=== PATIENT | female | born 1970 | race Two or more races ===

== ENCOUNTER 2023-11-13 08:40 | Outpatient (CLI) | payer OTHER, SELFPAY ==
--- OUTSIDE RECORDS SUMMARY | 2023-11-13 08:42 | XMS_ITS | Data Portability ---
Author Organization [facility] Address [address] [place] [address] [facility] [id number] Assessment No assessment recorded. Plan of Treatment Reminders Order Date Submit Date Provider Last Modified By Organization Details Last Modified Time Details Appointments Any 30 2023 09:00A Mayi Everett MD Not available Not available Not available Lab None recorded. Referral orthopedi c surgeon referral 2021 022 [email or web address] Not available 02/16/2022 18:42:26 Procedures None recorded. Surgeries None recorded. Imaging None recorded. Medication Orders None recorded. Patient TargetsNo targets recorded. Patient InstructionsNo instructions recorded. Reason for Referral Orthopedic Surgeon Referral for Trigger finger of right hand Patient complains of right middle trigger finger, with mild to moderate pain. Referring Physician: Rebecca Contreras, Family Medicine, Encounter Date: 02/14/2022 Medical Equipment None Reported. Vitals None Recorded Social History None recorded. Functional Status None recorded. Mental Status None recorded. Family History Nothing Reported. Medical History No medical history recorded. Gynecological HistoryNo gynecological history recorded. Obstetrics History GPAL:G 0 P 0 0 0 0 Past Encounters Encounter ID Performer Location Encounter Start Date Encounter Closed Date Diagnosis/Indication Diagnosis SNOMED-CT Code [id number] ELA CASTRO [place] [facility] [address] [facility] [address] [place] [id number] 02/14/2022 19:01:39 02/14/2022 19:53:29 Trigger finger of right hand [id number] 101 Health Concerns Section Related Observation LastModified by Organization Detai ls LastModified Time None Recorded Concern Status LastModified by Organization Details LastModified Time None Recorded Advance Directives Directive None Recorded Payers Encounter Date Sequence Insurance Name Policy Number Policy Huerta Covered Member ID Huerta Member ID Guarantor Name 02/14/2022 SLIDING FEE SCHEDULE - DISCOUNT Elda Guerra OBJorge Luis Episode No OBEpisode recorded.
--- OUTSIDE RECORDS SUMMARY | 2023-11-13 08:42 | XMS_ITS | Clinical Summary ---
Author Organization [facility] Address [place], [place] [address] Care Team Providers Care Extractor Operator Name Role Phone Unavailable Primary Care Provider Unavailabl e Allergies No known active allergies Medications No known medications Active Problems Problem Noted Date Diagnosed Date Type 2 diabetes mellitus wit hout complication, without long-term current use of insulin 08/01/2022 Overview: Diagnosed July 2022, Hemoglobin A1C 7.2. Hemorrhoids with prolapsed t issue that cannot be manually replaced 11/04/2015 Environmental allergies 11/18/2012 Vitamin D deficiency 10/06/2010 Lateral epicondylosis of left elbow 12/17/2009 Sacroiliitis, not elsewhere classified 8 Hypertriglyceridemia Pap smear for cervical cancer screening Overview: 06/2021 NIL/HPV negative. Plan: Pap/HPV due 06/2026 Resolved Problems Problem Noted Date Diagnosed Date Resolved Date Elbow pain 09/16/2009 10/04/2010 Impaired fasting glucose Immunizations Name Administration Dates Next Due AMB Influenza, IIV3 (Age >=3 years)(Flu Clinic [facility]) 04/23/2008 Td (Age >=7 Years) 08/08/2004 Tdap 12/12/2012 Family History Medical History Relation Name Comments Good Health Brother 1 Good Health Brother 2 Hyperlipidemia Father Hypertension Father Good Health Mother Cancer-breast Sister 1 lumpectomy and radiation Good Health Sister 2 Good Health Sister 3 Good Health Sister 4 Anesthesia Problem No Family History Blood Disease No Family History Cancer-colon No Family History Cancer-ovarian No Family History Diabetes No Family History Relation Name Status Comments Brother 1 Brother 2 Father Mother Sister 1 Sister 2 Sister 3 Sister 4 Social History Tobacco Use Types Packs/Day Years Used Date Smoking Tobacco: Never Smokeless Tobacco: Never Tobacco Cessation:Counseling Given: Yes Alcohol Use Standard Drinks/Week Comments No 0 (1 standard drink = 0.6 oz pur e alcohol) PHQ-2 Answer Date Recorded PHQ-2 TOTAL SCORE 0 07/19/2022 Social Connections Answer Date Recorded Frequency of Communication with Friends and Fami ly Not on file 05/21/2021 Financial Resource Strain Answer Date R ecorded Difficulty of Paying Living Expenses Not on file 05/21/2021 Difficulty of Paying Living Expenses Not on file 05/21/2021 Sex and Gender Information Value Date Recorded Sex Assigned at Not on file Gender Identity Not on file Sexual Orientation Not on file Obstetrics History Para Term AB IAB SAB Ectopic Multiple Livin g Live Births 3 Date Outcome GA Total Labor Labor/2nd/3rd Weight Sex Type Anes PTL Nidhi A1 A5 Name Clin Last Filed Vital Signs Vital Sign Reading Time Taken Comments Blood Pressure 119/79 08/01/2022 8:54 AM CDT Pulse 74 08/01/2022 8:54 AM CDT Temperature 37.1 ??C (98.7 ??F) 01/15/2020 10:14 AM C DT Respiratory Rate 16 11/05/2015 2:00 PM CDT Oxygen Saturation 97% 08/01/2022 8:54 AM CDT Inhaled Oxygen Concentration - - Weight 76.7 kg (169 lb) 08/01/2022 8:54 AM CDT Height 153 cm (5' 0.24) 07/19/2022 8:29 AM MANAGER SQL Body Mass Index 32.75 07/19/2022 8:29 AM MANAGER SQL Plan of Treatment Health Maintenance Due Date Last Done Comments Pneumococcal series for age 6-64 (1 of 2 - PCV) 11/08/1977 HIV for age 15-65 11/08/1986 Hepatitis C screening for ag e 18-79 11/08/1989 Colonoscopy through age 75 11/08/2016 Zoster (shingles) series for age 50+ (1 of 2) 11/08/2021 Tetanus booster 12/12/2022 12/12/2012, 08/08/2004 COVID-19 vaccine series (2022- season) 2023 BMI (ht and wt on same day) for age 18+ 07/20/2023 07/19/2022, 07/13/2021, 09/30/2020, Additional history exists Mammogram for age 45-75 07/20/2023 07/20/19, 07/13/2021, 06/09/2020, Additional history exists Depression screening for age 12+ 07/22/2023 07/21/2022, 07/19/2022, 07/19/2022, Additional history exists Influenza for age 50-64 01/20/2024 04/23/2008 Pap test for age 21-65 07/13/2026 , 07/13/2021, 07/26/2018, Additional history exists Lipids for age 45-75 07/20/2027 07/19/2022, 07/13/2021, 07/13/2021, Additional history exists Tdap Completed 12/12/2012 Procedures Procedure Name Priority Date/Time Associated Diagnosis Comments XR MAMMO SYLVAIN BILAT SCREEN Routine 07/19/2022 10:27 AM MANAGER SQL Other screening mammogram LC LIPID PANEL AND CHOL/HDL RATIO Routine 07/19/2022 9:20 AM MANAGER SQL Hypertriglyceridemi a SOLAR MANAGER THIN PREP PAP SCREEN IMAGED Routine 07/13/2021 9:47 AM MANAGER SQL Screening for malignant neoplasm of cervix from Last 3 Months or Most Recently Relevant to Health Maintenance Results * XR MAMMO SYLVAIN BILAT SCREEN (07/19/2022 10:27 AM MANAGER SQL) Anatomical Region Laterality Modality BREASTS, Breast Left, Breast Right Bilateral Mammography Impressions 07/19/2022 2:29 PM MANAGER SQL ??There is no radiographic evidence for malignancy. ??Recommend annual mammograms. MAMMOGRAM ASSESSMENT: ??ACR 1 Negative PATIENTS: You will also receive a letter with your examination results in an easy to read format. ??If you have questions about your results, please contact your referring provider. Narrative 07/19/2022 2:29 PM MANAGER SQL For Patients: As a result of the Century Cures Act, medical imaging exams and procedure reports are released immediately into your electronic medical record. You may view this report before your referring provider. If you have questions, please contact your health care provider. XR MAMMO SYLVAIN BILAT SCREEN [[id number]] CLINICAL HISTORY: ??This is an asymptomatic 51 y.o. patient. INDICATION FOR EXAM: Mammogram Screening. TECHNIQUE: CC & MLO views were obtained. ??This study was evaluated with the assistance of Computer-Aided Detection. Breast Tomosynthesis was used in interpretation. COMPARISON FILM: Yes 07/13/21 [employer] [facility] 06/09/20 [employer] FINDINGS: ??The breasts are heterogeneously dense, which may obscure small masses. There are no dominant masses, suspicious micro calcifications or areas of architectural distortion. Vicki MAHMOOD MAMMO * (ABNORMAL) LC LIPID PANEL AND CHOL/HDL RATIO (07/19/2022 9:20 AM [facility]) Cholesterol, Total 209(H) 100 - 199 mg/dL 07/21/2022 10:10 AM [facility] Triglycerides 537(H) 0 - 149 mg/dL 07/21/2022 10:10 AM [facility] HDL Cholesterol 32(L) >39 mg/dL 10:10 AM [facility] VLDL Cholesterol Keenan 88(H) 5 - 40 mg/dL 07/21/2022 10:10 AM [facility] LDL Chol Calc (NIH) 89 0 - 99 mg/dL 07/21/2022 10:10 AM [facility] T. Chol/HDL Ratio 6.5(H) 0.0 - 4.4 ratio 07/21/2022 10:10 AM [facility] Comment: ?T. Chol/HDL Ratio ?Men ??Women ?1/2 Avg.Risk ??3.4 ?3.3 ?Avg.Risk ??5.0 ?4.4 ? 2X Avg.Risk ??9.6 ?7.1 ? 3X Avg.Risk 23.4 ?? 11.0 Blood BLOOD SPECIMEN / Unknown Venipuncture / Unknown 07/19/2022 9:20 AM MANAGER SQL 07/19/2022 10:33 AM MANAGER SQL Narrative [facility] - 07/21/2022 10:10 AM MANAGER SQL Performed at: ??01 - [facility] [address] [place], [place] ??[id number] Playground Monitor: Jose Garcia MD, Phone: ??[phone] Vicki [facility]MOOD [facility] [address] [place] [address], * SOLAR MANAGER THIN PREP PAP SCREEN IMAGED (07/13/2021 9:47 AM MANAGER SQL) Case Report Gynecologic Cytology Report ? Case: [id number] ? Authorizing Provider: ??Vicki Cee PA ?Collected: ? 07/13/2021 0947 ? Ordering Location: ? [facility] ?? Received: ?07/13/2021 1017 ? Clinic ? First Screen: ?Theresa Waggoner ? Specimen: ?SOLAR MANAGER ThinPrep Vial Screening, Cervical ? 07/25/2021 2:31 [facility] INTERPRETATION /RESULT NEGATIVE FOR INTRAEPITHELIAL LESION OR MALIGNANCY (NIL) (none) 07/25/2021 2:31 PM [facility] IMEN ADEQUACY Satisfactory for evaluation Endocervical component present 07/25/2021 2:31 PM [facility] HPV REQUEST HPV and PAP 07/25/2021 2:[address] [facility] Date of LMP 07/05/21 07/25/2021 2:31 PM MANAGER SQL [facility] Last Pap Date 07/26/18 07/25/2021 2:31 PM MANAGER SQL [facility] Last Pap Result NIL 07/25/2021 2:31 PM MANAGER SQL [facility] Abnormal Pap or Bullard Bx in last 5 years No 07/25/2021 2:31 PM MANAGER SQL [facility] Menstrual Status Regular Periods 07/25/2021 2:31 PM MANAGER SQL [facility] Bullard Bx Done Today No 07/25/2021 2:31 PM MANAGER SQL [facility] Additional Information None given 07/25/2021 2:31 PM MANAGER SQL [facility] Comment: Cytology is screened at [facility] - [address], [place] [address] and [facility] - [address], [place] [address] and [facility] - [address] [place] [address] Interpreted at [facility] - [address], [place] [address] Automated Review Failed 07/25/2021 2:31 PM MANAGER SQL [facility] Comment:Processing failed, m anual screening required. ThinPrep Imaging System, [employer] ANCILLARY TESTING SOLAR MANAGER HPV Ordered, Please see separate report 07/25/2021 2:31 PM MANAGER SQL [facility] Note The pap test is a screening technique, not a diagnostic procedure. It is used primarily to screen for squamous cancers and precursor lesions. Published studies have shown that it is subject to both false negative and false positive results. The pap test should not be used as the sole means to diagnose or exclude pre-malignant and malignant lesions. 07/25/2021 2:31 PM MANAGER SQL [facility] Other (Cervical) Non-Blood / Unknown 07/13/2021 9:47 AM MANAGER SQL 07/13/2021 10:17 AM MANAGER SQL Vicki MAHMOOD PATHOLOGY/CYTOLOGY [facility] [address] [place] [address], [place] from Last 3 Months or Most Recently Relevant to Health Maintenance Advance Directives * Full Code (Latest Code Status on File) Date Activated Date Inactivated Comments 11/05/2015 11:20 AM 11/06/2015 2:27 AM * Full Code Date Activated Date Inactivated Comments 11/05/2015 8:26 AM 11/05/2015 11:20 AM
--- NOTE | 2023-11-13 08:45 | CRLHL7_ITS ---
For Patients: As a result of the Century Cures Act, medical imaging exams and procedure reports are released immediately into your electronic medical record. You may view this report before your referring provider. If you have questions, please contact your health care provider. BILATERAL SCREENING MAMMOGRAM WITH COMPUTER-AIDED DETECTION AND TOMOSYNTHESIS TECHNIQUE: CC and MLO views were obtained. These mammographic images have been obtained using full-field digital technique. These mammographic images were interpreted with the benefit of computer-aided detection. Breast Tomosynthesis was used in this interpretation. COMPARISON FILM: 07/19/22, 07/13/21, 06/09/20. FINDINGS: The breasts are heterogeneously dense, which may obscure small masses. IMPRESSION: There is no radiographic evidence for malignancy. ASSESSMENT: BI-RADS Category 2: Benign RECOMMENDATION: Routine screening mammogram in 1 year. A lay language report of this examination will be provided to the patient. Tony Rehman M.D. Diagnostic Radiologist [facility] [email or web address] SP/Dictated by: Tony Rehman MD @ 11/19/2023 3:09:00 PM (Electronically Signed)
== END 2023-11-13 08:41 | disposition home or self-care (01) ==
LOC: MAMMO 08:40
PROVIDERS: Visit Provider Physician Assistant
DX: Z12.31 Encounter for screening mammogram for malignant neoplasm of breast (principal); R92.2 Inconclusive mammogram
CPT/HCPCS: 77063; 77067

== ENCOUNTER 2024-12-03 17:12 | Outpatient (CLI) | payer MEDICAID, SELFPAY | END 2024-12-03 17:13 | disposition home or self-care (01) | LOC: NFLDUCREF 17:13 | DX: R10.9 Unspecified abdominal pain (principal); R50.9 Fever, unspecified | CPT/HCPCS: 87086 ==

== ENCOUNTER 2024-12-03 18:09 | Inpatient (IN) | payer MEDICAID, SELFPAY ==
[2024-12-03] VITALS (7 sets, daily range): BP systolic 123–138; BP diastolic 51–80; PULSE 76–110; RESP 16–18; TEMP 36.9–38.3; O2SAT 97–98; BMI 32.5
--- OUTSIDE RECORDS SUMMARY | 2024-12-03 18:11 | XMS_ITS | Data Portability ---
Author Organization [facility] Address [address] [place] [address] [facility] [id number] Assessment Encounter Date Assessment Date Assessment LastModified by Organization Details LastModified Time 11/14/2023 11/14/2023 - annual labs, UTD on pap and mammogram - if A1C higher than last year, consider addition of Metformin [email or web address] Not available 11/14/2023 12:43:34 04/07/2024 04/07/2024 Start naproxen 500 mg twice a day for headaches. Return if headaches start becoming more frequent for possible preventive medication [email or web address] Not available 04/07/2024 15:11:00 Plan of Treatment Reminders Order Date Submit Date Provider Last Modified By Organization Details Last Modified Time Details Appointments ESTABLISH ED PATIENT 30 2024 09:00A Mayi Everett MD Not available Not available Not available Lab HbA1c (hemoglob in A1c), blood 2024 025 [facility], [address] [place], [address], 06/30/2024 14:58:20 BMP, serum or plasma 2024 025 [facility], [address] [place], [address], 06/30/2024 14:58:21 CMP, serum or plasma 2023 024 [facility], [address] [place], [address], 12/20/2023 16:21:44 HbA1c (hemoglob in A1c), blood 2023 024 [facility], [address] [place], [address], 12/20/2023 16:22:48 lipid panel, serum 2023 024 [facility], [address] [place], [address], 12/20/2023 16:21:44 CBC w/ auto diff 2023 024 [facility], [address] [place], [address], 12/20/2023 16:22:18 TSH, serum or plasma 2023 024 [facility], [address] [place], [address], 12/20/2023 16:20:26 Referral orthopedi c surgeon referral 2021 022 [email or web address] Not available 02/16/2022 18:42:26 Procedures None recorded. Surgeries None recorded. Imaging None recorded. Medication Orders naproxen 500 mg tablet [address], [address], 06/27/2024 12:38:07 Patient TargetsNo targets recorded. Patient InstructionsNo instructions recorded. Reason for Referral Orthopedic Surgeon Referral for Trigger finger of right hand Patient complains of right middle trigger finger, with mild to moderate pain. Referring Physician: Rebecca Contreras, Family Medicine, Encounter Date: 02/14/2022 Results Created Date Observation Date Name Description Value Unit Range Abnormal Flag Note LastModifiedBy Organization Detail LastModifiedTime 06/30/1906/30/2024 BMP, serum or plasm a A1C 7.1 high Not Available [facility] [address] [place], [address], 06/30/2024 14:58:20 06/30/19 06/30/2024 BMP, serum or plasm a creatinine 0.5 Not Available [facility] [address] [place], [address], 06/30/2024 14:58:20 06/30/19 25 06/30/2024 HbA1c (hemo globi n A1c), blood A1C 7.1 high Not Available [facility] [address] [place], [address], 06/30/2024 14:03:26 06/30/19 25 06/30/2024 HbA1c (hemo globi n A1c), blood creatinine 0.5 Not Available [facility] [address] [place], [address], 06/30/2024 14:03:26 Result Notes None recorded. Problems Name Problem SNOMED Code Status Onset Date Resolution Date Notes Provider Name and Address Organization Details Recorded Time Type 2 diabetes mellitus 94093969 Active 2022 Echo Everett MD [address] [place], [address], [employer] 4 10:42:28 [facility] 71567348 Active 2023 Echo Everett MD [address] [place], [address], [employer] 4 12:37:20 Screening for malignant neoplasm of cervix Active 2023 Last pap at [facility] and normal with - HPV in 2021 per chart review, next pap 2026 Echo Everett MD [address] [place], [address], [employer] 4 12:38:00 Hyperlipid emia 24090839 Active 2024 Echo Everett MD [address] [facility] [place], [address], [employer] 5 12:50:45 Problem Notes None recorded. Medical Equipment None Reported. Medications Name Sig Start Date Stop Date Status Note LastModified by Organization Details LastModified Time naproxen 500 mg tablet TAKE 1 TABLET BY MOUTH TWICE A DAY NEEDED. 2024 completed Not Available Not Available Not Available Vitals Date Recorded Body height Body mass index (BMI) Body weight Heart rate Oxygen saturation Oxygen saturation in Arterial blood by Pulse oximetry Provider Name and Address Organization Details Last Updated DateTime 5 154.94 cm 32.2 kg/m2 13112.7 8 g 87 /min 98 % 98 % Echo Everett MD [address] [place], [address], [facility] [employer] [facility] 5 12:43:28 Date Recorded Body weight Heart rate Heart rate Oxygen saturation Oxygen saturation in Arterial blood by Pulse oximetry Systolic And Diastolic Provider Name and Address Organization Details Last Updated DateTime 4 06690.3 g 95 /min 95 /min 97 % 97 % 127/72 mm[Hg] Echo Everett MD [address] [place], [address] [employer] [facility] 4 12:38:16 Date Recorded Body height Body mass index (BMI) Body weight Respiratory rate Oxygen saturation Oxygen saturation in Arterial blood by Pulse oximetry Body temperature Heart rate Systolic And Diastolic Provider Name and Address Organization Details Last Updated DateTime 4 154.94 cm 32.4 kg/m2 90612.4 5 g 22 /min 99 % 99 % 96.7 [degF] 98 /min 139/81 mm[Hg] Venecia Larson [facility] [employer] [facility] 4 14:49:03 Social History None recorded. Functional Status None recorded. Mental Status None recorded. Family History Relationship Description Onset Age of this Age Resolved Age Notes LastModified by Organization Details LastModified Time Father Depressive disorder [email or web address] Not available 11/13 12:42:51 Medical History Condition Response Diabetes Y Gynecological HistoryNo gynecological history recorded. Obstetrics History GPAL:G 0 P 0 0 0 0 Past Encounters Encounter ID Performer Location Encounter Start Date Encounter Closed Date Diagnosis/Indication Diagnosis SNOMED-CT Code Diagnosis ICD10 Code Diagnosis Note [id number] ELA CASTRO Office [address] [facility] [address] [place] [id number] 02/14/2022 19:01:39 02/14/2022 19:53:29 Trigger finger of right hand [id number] 5339894 M65.30 Middle finger right hand, trigger finger [id number] MD [facility] [address] [place] [address] 11/14/2023 10:38:39 11/14/2023 11:21:55 Type 2 diabetes mellitus 63512378 E11.9 Adult [facility] th examination 569317801 Z00.00 [id number] RAMON CASTLE MD [facility] [address] [place] [address] 04/07/2024 14:41:22 04/07/2024 15:14:08 Migraine 78332190 G43.909 [id number] MD [facility] [address] [place] [address] 06/27/2024 12:17:29 06/27/2024 12:48:28 Type 2 diabetes mellitus 96508958 E11.9 - f/u A1C and BMP- discussed addition of meds if A1C were to be higher than 7-7.5- f/u summer 2024 Health Concerns Section Related Observation LastModified by Organization Detai ls LastModified Time None Recorded Concern Status LastModified by Organization Details LastModified Time None Recorded Advance Directives Directive None Recorded Payers Insurance Date Sequence Insurance Name Policy Number Policy Huerta Covered Member ID Huerta Member ID Guarantor Name 12/20/2023 SLIDING FEE SCHEDULE - DISCOUNT Elda Mendoza [place] Guerra Notes Date Note Type Note Provider Name and Address Organization Details Recorded Time 11/14/2023 text/html Elda is in for annual exam.She was previously seen by Vicki Cee at the [facility].History of diet-controlled DM2 (A1C last year 7.2, had been pre-diabetic for about 7 years prior). Not checking sugars at home.Had her Mammogram yesterday.Last JEMAL pap in 2021 (-HPV, due in 2026) Echo Everett MD [address] [place], [address], [facility] - [employer] [facility] 11/14/2023 12:43:51 06/27/2024 text/html Elda is in for f/u.No concerns today.Labs labs November: diagnosed with DM2 at that time (A1C 6.6), cholesterol mildly elevated as well.Deferred medication initiation, made some diet changes. Active, watches 2yo granddaughter. Echo Everett MD [address] [place], [address], [facility] 06/27/2024 12:51:38 OBGyn Episode No OBEpisode recorded.
--- OUTSIDE RECORDS SUMMARY | 2024-12-03 18:11 | XMS_ITS | Clinical Summary ---
Author Organization [facility] Address [address] [place] [address] Care Team Providers Care Surveillance Manager Name Role Phone Unavailable Primary Care Provider Unavailabl e Allergies No known active allergies Medications No known medications Active Problems Problem Noted Date Diagnosed Date Type 2 diabetes mellitus wit hout complication, without long-term current use of insulin 08/01/2022 Overview (08/01/2022): Diagnosed July 2022, Hemoglobin A1C 7.2. Hemorrhoids with prolapsed t issue that cannot be manually replaced 11/04/2015 Environmental allergies 11/18/2012 Vitamin D deficiency 10/06/2010 Lateral epicondylosis of left elbow 12/17/2009 Sacroiliitis, not elsewhere classified 8 Hypertriglyceridemia Pap smear for cervical cancer screening Overview (08/24/2021): 06/2021 NIL/HPV negative. 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 Gender Identity Not on file Sexual Orientation Not on file Occupation Industry Job Start Date Job End Date homemaker Not on file Not on file Not on file Obstetrics History Para Term AB IAB SAB Ectopic Multiple Livin g Live Births 3 Date Outcome GA Total Labor Labor/2nd/3rd Weight Sex Type Anes PTL Nidhi A1 A5 Name Clin Last Filed Vital Signs Vital Sign Reading Time Taken Comments Blood Pressure 119/79 08/01/2022 8:54 AM CDT Pulse 74 08/01/2022 8:54 AM CDT Temperature 37.1 C (98.7 F) 01/15/2020 10:14 AM CDT Respiratory Rate 16 11/05/2015 2:00 PM CDT Oxygen Saturation 97% 08/01/2022 8:54 AM CDT Inhaled Oxygen Concentration - - Weight 76.7 kg (169 lb) 08/01/2022 8:54 AM CDT Height 153 cm (5' 0.24) 07/19/2022 8:29 AM DROP MACHINE OPERATOR Body Mass Index 32.75 07/19/2022 8:29 AM DROP MACHINE OPERATOR Plan of Treatment Health Maintenance Due Date Last Done Comments HIV for age 15-65 11/08/1986 Hepatitis C screening for ag e 18-79 11/08/1989 Hepatitis B series for 19+ ( 1 of 3 - 19+ 3-dose series) 11/08/1990 Pneumococcal series for age 50+ (1 of 2 - PCV) 11/08/1990 Colonoscopy through age 75 11/08/2016 Zoster (shingles) series for age 50+ (1 of 2) 11/08/2021 Tetanus booster 12/12/2022 12/12/2012, 08/08/2004 BMI (ht and wt on same day) for age 18+ 07/20/2023 07/19/2022, 07/13/2021, 09/30/2020, Additional history exists Mammogram for age 45-75 07/20/2023 07/20/19, 07/13/2021, 06/09/2020, Additional history exists Depression screening for age 12+ 07/22/2023 07/21/2022, 07/19/2022, 07/19/2022, Additional history exists COVID-19 vaccine series (2023- season) 2024 Influenza Vaccine (#1) 2025 04/23/2008 Pap test for age 21-65 07/13/2026 , 07/13/2021, 07/26/2018, Additional history exists Lipids for age 45-75 07/20/2027 07/19/2022, 07/13/2021, 07/13/2021, Additional history exists Procedures Procedure Name Priority Date/Time Associated Diagnosis Comments XR MAMMO SYLVAIN BILAT SCREEN Routine 07/19/2022 10:27 AM DROP MACHINE OPERATOR Other screening mammogram LC LIPID PANEL AND CHOL/HDL RATIO Routine 07/19/2022 9:20 AM DROP MACHINE OPERATOR Hypertriglyceridemi a HEAD CORRECTION OFFICER THIN PREP PAP SCREEN IMAGED Routine 07/13/2021 9:47 AM DROP MACHINE OPERATOR Screening for malignant neoplasm of cervix from Last 3 Months or Most Recently Relevant to Health Maintenance Results * XR MAMMO SYLVAIN BILAT SCREEN (07/19/2022 10:27 AM DROP MACHINE OPERATOR) Anatomical Region Laterality Modality BREASTS, Breast Left, Breast Right Bilateral Mammography Impressions 07/19/2022 2:29 PM DROP MACHINE OPERATOR There is no radiographic evidence for malignancy. Recommend annual mammograms. MAMMOGRAM ASSESSMENT: ACR 1 Negative PATIENTS: You will also receive a letter with your examination results in an easy to read format. If you have questions about your results, please contact your referring provider. Narrative 07/19/2022 2:29 PM DROP MACHINE OPERATOR For Patients: As a result of the 21st Century Cures Act, medical imaging exams and procedure reports are released immediately into your electronic medical record. You may view this report before your referring provider. If you have questions, please contact your health care provider. XR MAMMO SYLVAIN BILAT SCREEN [[id number]] CLINICAL HISTORY: This is an asymptomatic 51 y.o. patient. INDICATION FOR EXAM: Mammogram Screening. TECHNIQUE: CC & MLO views were obtained. This study was evaluated with the assistance of Computer-Aided Detection. Breast Tomosynthesis was used in interpretation. COMPARISON FILM: Yes 07/13/21 [facility] 06/09/20 [facility] FINDINGS: The breasts are heterogeneously dense, which may obscure small masses. There are no dominant masses, suspicious micro calcifications or areas of architectural distortion. us Vicki MAHMOOD MAMMO Final Resu lt * (ABNORMAL) LC LIPID PANEL AND CHOL/HDL RATIO (07/19/2022 9:20 AM DROP MACHINE OPERATOR) Cholesterol, Total 209(H) 100 - 199 mg/dL 07/21/2022 10:10 AM [facility] Triglycerides 537(H) 0 - 149 mg/dL 07/21/2022 10:10 AM [facility] HDL Cholesterol 32(L) >39 mg/dL 3 10:10 AM [facility] VLDL Cholesterol Keenan 88(H) 5 - 40 mg/dL 07/21/2022 10:10 AM [facility] LDL Chol Calc (NIH) 89 0 - 99 mg/dL 07/21/2022 10:10 AM [facility] T. Chol/HDL Ratio 6.5(H) 0.0 - 4.4 ratio 07/21/2022 10:10 AM [facility] Comment: T. Chol/HDL Ratio Men Women 1/2 Avg.Risk 3.4 3.3 Avg.Risk 5.0 4.4 2X Avg.Risk 9.6 7.1 3X Avg.Risk 23.4 11.0 Blood BLOOD SPECIMEN / Unknown Venipuncture / Unknown 07/19/2022 9:20 AM DROP MACHINE OPERATOR 07/19/2022 10:33 AM DROP MACHINE OPERATOR Narrative [facility] - 07/21/2022 10:10 AM DROP MACHINE OPERATOR Performed at: 01 - [facility] [place], [place] [id number] Child Care Supervisor: Jose Garcia MD, Phone: [phone] Vicki MAHMOOD SEND OUTS Final Resu lt [facility] [address] [place] [address], * HEAD CORRECTION OFFICER THIN PREP PAP SCREEN IMAGED (07/13/2021 9:47 AM DROP MACHINE OPERATOR) Case Report Gynecologic Cytology Report Case: [id number] Authorizing Provider: Vicki Cee PA Collected: 07/13/2021 0947 Ordering Location: [facility] Received: 07/13/2021 1017 Clinic First Screen: Theresa Waggoner Specimen: HEAD CORRECTION OFFICER ThinPrep Vial Screening, Cervical 07/25/2021 2:31 PM DROP MACHINE OPERATOR [facility] INTERPRETATION /RESULT NEGATIVE FOR INTRAEPITHELIAL LESION OR MALIGNANCY (NIL) (none) 07/25/2021 2:31 PM DROP MACHINE OPERATOR [facility] at 1431 DROP MACHINE OPERATOR SPECIMEN ADEQUACY Satisfactory for evaluation Endocervical component present 07/25/2021 2:31 PM DROP MACHINE OPERATOR [facility] HPV REQUEST HPV and PAP 07/25/2021 2:31 PM DROP MACHINE OPERATOR [facility] Date of LMP 07/05/21 07/25/2021 2:31 PM DROP MACHINE OPERATOR [facility] Last Pap Date 07/26/18 07/25/2021 2:31 PM DROP MACHINE OPERATOR [facility] Last Pap Result NIL 07/25/2021 2:31 PM DROP MACHINE OPERATOR [facility] Abnormal Pap or Wittmann Bx in last 5 years No 07/25/2021 2:31 PM DROP MACHINE OPERATOR [facility] Menstrual Status Regular Periods 07/25/2021 2:31 PM DROP MACHINE OPERATOR [facility] Wittmann Bx Done Today No 07/25/2021 2:31 PM DROP MACHINE OPERATOR [facility] Additional Information None given 07/25/2021 2:31 PM DROP MACHINE OPERATOR [facility] Comment: Cytology is screened at [facility] - [address], [place] [address] and [facility] - [address], [place] [address] and [facility] - [address] [place] [address] Interpreted at [facility] - [address], [place] [address] Automated Review Failed 07/25/2021 2:31 PM DROP MACHINE OPERATOR [facility] Comment:Processing failed, m anual screening required. ThinPrep Imaging System, [employer] ANCILLARY TESTING HEAD CORRECTION OFFICER HPV Ordered, Please see separate report 07/25/2021 2:31 PM DROP MACHINE OPERATOR [facility] Note The pap test is a screening technique, not a diagnostic procedure. It is used primarily to screen for squamous cancers and precursor lesions. Published studies have shown that it is subject to both false negative and false positive results. The pap test should not be used as the sole means to diagnose or exclude pre-malignant and malignant lesions. 07/25/2021 2:31 PM DROP MACHINE OPERATOR [facility] Other (Cervical) Non-Blood / Unknown 07/13/2021 9:47 AM DROP MACHINE OPERATOR 07/13/2021 10:17 AM DROP MACHINE OPERATOR us Vicki MAHMOOD PATHOLOGY/CYTOLOGY Final R esult [employer] [address] [place] [address], from Last 3 Months or Most Recently Relevant to Health Maintenance Advance Directives * Full Code (Latest Code Status on File) Date Activated Date Inactivated Comments 11/05/2015 11:20 AM 11/06/2015 2:27 AM * Full Code Date Activated Date Inactivated Comments 11/05/2015 8:26 AM 11/05/2015 11:20 AM
--- NOTE | 2024-12-03 18:39 | ED.ABDPAIN ---
HPI - Abdominal Pain General Time Seen by Provider: 18:39 Date Seen: 12/03/24 Chief Complaint: Abdominal Pain Stated Complaint: pain in lower back/stomach Time Seen by Provider: 12/03/24 18:31 Source: patient, RN notes reviewed, senior linux unix engineer and other (Reviewed with provider from urgent care, did discuss that I believed patient need imaging.) Mode of arrival: ambulatory Limitations: no limitations History of Present Illness HPI narrative: This 54-year-old female is accompanied by her daughter and referred from urgent care with abdominal pain. She notes that she had abdominal pain starting this morning, felt fevers. When she presented to urgent care was low abdominal pain that was sharp, she stated it felt similar to period cramps but she is perimenopausal, last LMP was in September. Periods have been irregular an inconsistent. She has had a tubal ligation and cholecystectomy. She states she had normal bowel movement today. She has had a bit of a headache. She noted some central chest pain in Urgent Care without any shortness of breath. She had normal EKG in Urgent Care. She denied any nausea or vomiting, no urinary symptoms, no vaginal symptoms. Her appetite was diminished for food but was still drinking. She did not try any [id number] medicines. She has not had symptoms like this before. Her labs in clinic showed a hemoglobin of 13.2[place] [address]. Her platelet count was 850211. Urinalysis had 2+ protein, negative ketones, 0-2 red cells, 5-10 white blood cells, few squamous epithelial cells, few bacteria but negative nitrites and negative leukocyte esterase. Her glucose was 160, sodium 137, potassium 4, creatinine 0.6. Last hemoglobin A1c was 7.1% on June 30 2024. Provider in Urgent Care felt she had significant epigastric tenderness but patient also complained of some suprapubic pelvic pain. She did call the ER and I did agree that this patient should have imaging and she was subsequently sent here. She has not taken anything for pain today, feels that she is managing. MD elicited complaint: abdominal pain Related Data Home Medications ?Medication ?Instructions ?Recorded ?Confirmed No Known Home Medications 10/18/23 12/03/24 Allergies Allergy/AdvReac Type Severity Reaction Status Date / Time No Known Drug Allergies Allergy Verified 12/03/24 19:05 Review of Systems Status of ROS Reports: 6 or more systems reviewed and unremarkable except as noted in History and below [facility] Medical History Vitamin D deficiency (10/06/10) ?E55.9 - Vitamin D deficiency, unspecified (ICD-10) Type 2 diabetes mellitus (07/19/22) ?E11.9 - Type 2 diabetes mellitus without complications (ICD-10) Sacroiliitis, not elsewhere classified (11/18/07) ?M46.1 - Sacroiliitis, not elsewhere classified (ICD-10) Postmenopausal state (11/14/23) ?Z78.0 - Asymptomatic menopausal state (ICD-10) Hypertriglyceridemia ?E78.1 - Pure hyperglyceridemia (ICD-10) Hyperlipidemia (06/27/24) ?E78.5 - Hyperlipidemia, unspecified (ICD-10) Hemorrhoids with prolapsed tissue that cannot be manually replaced (11/04/15) ?K64.3 - Fourth degree hemorrhoids (ICD-10) Environmental allergies (11/18/12) ?Z91.09 - Other allergy status, other than to drugs and biological substances (ICD-10) Obstructive sleep apnea ?G47.33 - Obstructive sleep apnea (adult) (pediatric) (ICD-10) Surgical History History of tubal ligation ?Z98.51 - Tubal ligation status (ICD-10) History of laparoscopic cholecystectomy ?Z90.49 - Acquired absence of other specified parts of digestive tract (ICD-10) Family History Sister Breast cancer, Onset Age: 44 Father High cholesterol Social History Narrative: Homemaker. . Nonsmoker. No alcohol use. Smoking Status: Never smoker Do you use any of these nicotine containing products: None How often do you have a drink containing alcohol: monthly or less How many standard drinks containing alcohol do you have on a typical day: 1 or 2 How often do you have six or more drinks on one occasion: Never AUDIT-C Alcohol total score: 1 Non-prescribed substance use: denies use Exam Const: Vital Signs, click to edit/add: Vital Signs - 24 hr 12/03/24 18:14 12/03/24 19:24 12/03/24 19:27 Temperature 100.1 F H 101 F H Pulse Rate [Pulse Oximeter] 110 H 98 Respiratory Rate 18 17 Blood Pressure [Ri ght Forearm] 130/80 138/74 Pulse Oximetry 97 98 97 Oxygen Delivery Me thod Room Air Room Air This 54-year-old female is alert, interactive, no apparent distress, seen exam room 3. Sclera clear, conjugate gaze, symmetrical facial function with flushed cheeks but no rash. Speech is normal. Lungs are clear, good air entry, no wheezing or crackles, no tachypnea, no rash seen on her back. CV slightly fast but regular, no significant murmur, normal S1-S2. Abdomen with epigastric tenderness, right lower quadrant and suprapubic tenderness. She states the epigastric tenderness is the worst. I do not feel any organomegaly, no true rebound or guarding, no masses. Bowel sounds were not present when I listened. Documenting provider has reviewed patient's vital signs: yes Course Course ED Course: Patient did have urinalysis, basic metabolic panel and CBC in clinic. Will add on other labs including liver panel, lactate, lipase. Will also look at a troponin just to ensure no changes there, update an EKG. She declines anything for pain management at this time, have discussed NPO status until we know that this is not a surgical situation. We are ordering CT imaging of her abdomen pelvis to further identify intra-abdominal pathology. Unclear what this is at this time but CT imaging and further lab should help identify source. Again, will also look at a troponin and EKG as she is diabetic just to ensure no complicating ischemic disease. Will initiate a L of IV fluids, she is aware to let us know if she changes her mind on pain management. Reevaluation(s) Time of Reevaluation #1: 20:05 Reevaluation #1: Did review with patient and her family the findings on the CT, concern for possible early colitis. She has not had any diarrhea however. Her temperature has risen, up to 101? F. did ask her again if she wanted something for pain, she states that she would take some Tylenol. I do think this is a good idea and it will help with her fever as well. We will order 1000 mg Tylenol. She does agree with hospitalization, Dr. Patricio will be seeing her. Consultations Consultation #1: Have reviewed case with the hospitalist Dr. Patricio. He agrees with observation. Patient's temperature is worsening. Will review with her and family that we are recommending hospitalization. He will decide if he wants to do antibiotics are not, have discussed with him that we have called lab to get a 2nd blood culture. Time: 20:04 Vital Signs Vital signs: Initial Vital Signs Temperature 100.1 F H 12/03/24 18:14 Temperature Source Temporal Artery Scan 12/03/24 18:14 Pulse Rate 110 H 12/03/24 18:14 Respiratory Rate 18 12/03/24 18:14 Blood Pressure 130/80 12/03/24 18:14 Blood Pressure Mean 96 12/03/24 18:14 Blood Pressure Position Sitting 12/03/24 18:14 Pulse Oximetry 97 12/03/24 18:14 Oxygen Delivery Method Room Air 12/03/24 18:14 Vital Signs Temperature 100.1 F H 12/03/24 18:14 Pulse Rate 110 H 12/03/24 18:14 Respiratory Rate 18 12/03/24 18:14 Blood Pressure 130/80 12/03/24 18:14 Pulse Oximetry 97 12/03/24 18:14 Oxygen Delivery Method Room Air 12/03/24 18:14 Temperature 101 F H 12/03/24 19:27 Pulse Rate 98 12/03/24 19:27 Respiratory Rate 17 12/03/24 19:27 Blood Pressure 138/74 12/03/24 19:27 Pulse Oximetry 97 12/03/24 19:27 Oxygen Delivery Method Room Air 12/03/24 19:27 Medications Administered Medications: Generic Name Dose Route Start Last Admin Trade Name Freq PRN Reason Stop Dose Admin Acetaminophen 1,000 mg 12/03/24 20:09 12/03/24 20:14 Acetaminophen 500 Mg Tablet PO 12/03/24 20:10 1,000 mg ONCE ONE Administration Sodium Chloride 1,000 mls @ 500 mls/hr 12/03/24 19:25 12/03/24 19:42 0.9 % Sodium Chloride 1000 Ml IV 12/03/24 21:24 500 mls/hr .Q2H ELFEGO Administration MDM - Abdominal Pain Lab Data Attestation: I reviewed the patient's lab results. Labs: Lab Results 12/03/24 12/03/24 12/03/24 Range/Units 18:50 18:52 20:06 Lactate 1.2 (0.5-1.9) mmol/L Total Bilirubin 0.9 (0.1-1.5) mg/dL Direct Bilirubin 0.0 (0.0-0.5) mg/dL AST 40 H (12-35) U/L ALT 38 H (4-35) U/L Alkaline Phosphatase 121 (40-150) U/L Troponin I < 0.01 (0.01-0.04) ng/mL C-Reactive Protein 1.8 H (0.5-1.0) mg/dL Total Protein 8.8 H (6.0-8.3) g/dL Albumin 4.3 (3.3-5.0) g/dL Lipase 84 (23-300) U/L Lab Acknowledgement Test Added Test Added Imaging Data CT scan - abdomen: Attestation: I have reviewed the pertinent imaging results. Radiologist's impression: Patient: OLIVIA GILMAN Facility:?[facility] Patient ID:?[id number] Site Patient ID:?[id number]. Site :?1970 Study:?CT-Abdomen/Pelvis 84cc ISOVUE 370-12/03/2024 7:12:05 PM Ordering Physician:?Maximino Segal Final Report: INDICATION: Abdominal pain, fever, leukocytosis. TECHNIQUE: CT abdomen and pelvis acquired with 84 cc Isovue 370 IV contrast. COMPARISON: None. FINDINGS: Lower chest: Unremarkable. Liver: Hepatic steatosis. No suspicious masses. Gallbladder and bile ducts: Prior cholecystectomy. Pancreas: Unremarkable. No mass or inflammation. Spleen: Unremarkable. Normal in size. No masses. Adrenal glands: Unremarkable. No nodules. Kidneys: Unremarkable. No suspicious masses, stones, or hydronephrosis. GI tract: Mild proximal colonic wall thickening accentuated by nondistention.. Normal in caliber. No sign of mass or inflammation. Normal appendix. Vasculature: Abdominal aorta is normal in caliber. Mesenteric arteries are patent. Lymph nodes: No lymphadenopathy. Peritoneum/Abdominal Wall: Unremarkable. No sign of mass or infiltration. No free air or significant free fluid. Pelvis: Mildly distended bladder with circumferential wall thickening. Bones: Unremarkable for age. IMPRESSION: Mild proximal colonic wall thickening accentuated by nondistention. Low-grade colitis not excluded. Mildly distended bladder with circumferential wall thickening. Recommend correlation with urinalysis if UTI suspected. Otherwise, no acute intra-abdominal/pelvic abnormality. Hepatic steatosis. Additional chronic findings as above. Please note that all CT scans at this facility use dose modulation, iterative reconstruction, and/or weight-based dosing when appropriate to reduce radiation dose to as low as reasonably achievable. Dictated by Joseph Sage MD @ 12/03/2024 7:20:12 PM (Electronic Signature) Chest x-ray: Attestation: I have reviewed the pertinent imaging results. Radiologist's impression: Patient: OLIVIA GILMAN Facility:?[facility] Patient ID:?[id number] Site Patient ID:?[id number]. Site :?1970 Study:?XRay-Chest 1V-12/03/2024 7:12:32 PM Ordering Physician:?Maximino Segal Final Report: INDICATION: Chest pain. TECHNIQUE: Chest 1 views. COMPARISON: None. FINDINGS: Cardiovascular and mediastinum: Heart size and vasculature are normal in caliber and appearance. Lungs and pleural spaces: Lungs are clear. No sign of infiltrate or mass. No sign of pleural effusion. No pneumothorax. Bones and soft tissues: No significant findings. IMPRESSION: No acute or significant findings. Dictated by Joseph Sage MD @ 12/03/2024 7:16:19 PM (Electronic Signature) ECG Data Attestation: I personally reviewed and interpreted this ECG as follows: (Sinus tachycardia, 101 beats per minute. Poor R-wave progression anterior precordial leads without any active ST segment or T-wave changes. No active ischemia noted.) ECG interpretation date: 12/03/24 ECG interpretation time: 19:23 Prior ECG tracings: available for review Discharge Plan Discharge Clinical Impression: Abdominal pain Qualifiers: Abdominal location: epigastric Qualified Code(s): R10.13 - Epigastric pain Fever Qualifiers: Fever type: unspecified Qualified Code(s): R50.9 - Fever, unspecified Patient Disposition: Admitted As Observation
--- NOTE | 2024-12-03 18:43 | CRLHL7_ITS ---
For Patients: As a result of the Century Cures Act, medical imaging exams and procedure reports are released immediately into your electronic medical record. You may view this report before your referring provider. If you have questions, please contact your health care provider. INDICATION: Abdominal pain, fever, leukocytosis. TECHNIQUE: CT abdomen and pelvis acquired with 84 cc Isovue 370 IV contrast. COMPARISON: None. FINDINGS: Lower chest: Unremarkable. Liver: Hepatic steatosis. No suspicious masses. Gallbladder and bile ducts: Prior cholecystectomy. Pancreas: Unremarkable. No mass or inflammation. Spleen: Unremarkable. Normal in size. No masses. Adrenal glands: Unremarkable. No nodules. Kidneys: Unremarkable. No suspicious masses, stones, or hydronephrosis. GI tract: Mild proximal colonic wall thickening accentuated by nondistention.. Normal in caliber. No sign of mass or inflammation. Normal appendix. Vasculature: Abdominal aorta is normal in caliber. Mesenteric arteries are patent. Lymph nodes: No lymphadenopathy. Peritoneum/Abdominal Wall: Unremarkable. No sign of mass or infiltration. No free air or significant free fluid. Pelvis: Mildly distended bladder with circumferential wall thickening. Bones: Unremarkable for age. IMPRESSION: Mild proximal colonic wall thickening accentuated by nondistention. Low-grade colitis not excluded. Mildly distended bladder with circumferential wall thickening. Recommend correlation with urinalysis if UTI suspected. Otherwise, no acute intra-abdominal/pelvic abnormality. Hepatic steatosis. Additional chronic findings as above. Please note that all CT scans at this facility use dose modulation, iterative reconstruction, and/or weight-based dosing when appropriate to reduce radiation dose to as low as reasonably achievable. Dictated by Joseph Sage MD @ 12/03/2024 7:20:12 PM (Electronically Signed)
--- NOTE | 2024-12-03 18:52 | CRLHL7_ITS ---
For Patients: As a result of the Century Cures Act, medical imaging exams and procedure reports are released immediately into your electronic medical record. You may view this report before your referring provider. If you have questions, please contact your health care provider. INDICATION: Chest pain. TECHNIQUE: Chest 1 views. COMPARISON: None. FINDINGS: Cardiovascular and mediastinum: Heart size and vasculature are normal in caliber and appearance. Lungs and pleural spaces: Lungs are clear. No sign of infiltrate or mass. No sign of pleural effusion. No pneumothorax. Bones and soft tissues: No significant findings. IMPRESSION: No acute or significant findings. Dictated by Joseph Sage MD @ 12/03/2024 7:16:19 PM (Electronically Signed)
[2024-12-03 18:58] LABS: Lactate* 1.2 mmol/L (0.5-1.9)
[2024-12-03 19:15] LABS: Albumin* 4.3 g/dL (3.3-5.0)
[2024-12-03 19:19] LABS: Alanine Aminotransferase* 38 U/L (4-35); Alkaline Phosphatase* 121 U/L (40-150); Aspartate Amino Transferase* 40 U/L (12-35); Bilirubin Direct* 0.0 mg/dL (0.0-0.5); Bilirubin Total* 0.9 mg/dL (0.1-1.5); Total Protein* 8.8 g/dL (6.0-8.3)
[2024-12-03] MEDS: ACETAMINOPHEN 500 MG TABLET 1000 MG PO (20:14)
--- NOTE | 2024-12-03 20:49 | PM.IMHP1 ---
Assessment and Plan Assessment and plan (1) Abdominal pain: Problem comment: CT suggestive of colitis. Patient is not having diarrhea at this point. Will do stool studies if diarrhea develops. She is moderately ill and with diffuse tenderness I am going to initiate antibiotics pending clinical course. Status: Acute (2) Fever: Problem comment: Likely due to intra-abdominal infection Status: Acute (3) Obstructive sleep apnea: Problem comment: Clinically suspected based on her small airway, history of snoring, history of daytime sleepiness and non restorative sleep. Status: Suspected (4) Type 2 diabetes mellitus: Problem comment: Patient reports diagnosis of prediabetes though hemoglobin A1c was 7.1 in June and is 8.1 today on 12/03/2024. Consider starting oral hypoglycemics when she is clinically better and eating. Status: Acute Plan 54-year-old female admitted to the hospital with generalized abdominal pain and fever. Cause for her symptoms is not clear at this time though I favor and intra-abdominal infection. CT suggestive of colitis but so far no diarrhea. Initiate antibiotics due to her being moderately ill pending her clinical course and more certain diagnosis Total Time Spent Total Time Spent: Total time spent today is 65 minutes in coordination of care, review of records and discussing with patient and family ongoing evaluation management of abdominal pain and fever Hospitalist- H&P: HPI History of Present Illness Date Seen: 12/03/24 Chief complaint: pain in lower back/stomach Narrative: Elda Guerra is a 54 year old female with pre diabetes and obesity presents with onset this morning of generalized crampy abdominal pain as well as low back pain. She reports she was feeling well until this morning. She had some T and a piece of toast this morning but is not tolerate any more oral intake. She has not had vomiting but has nausea and a complete loss of appetite. She has developed a fever with temperature in the emergency department to 101 F. she reports having a normal bowel movement today. No previous history of abdominal problems other than prior cholecystectomy. No other surgeries. No previous history of constipation, diarrhea or blood in her stool except a remote history, 9 years ago of problems with hemorrhoids. None since then. She reports no urinary symptoms, urgency or dysuria. On November 22 she reports she ate some tacos that she thought were bad. She had abdominal pain and cramping after that but it resolved. She was fine until today when symptoms began again. No other foods that she thinks ox could have been improperly prepared or stored. She has not had any recent travel. She is not aware of any contacts with anybody else who has been ill. She has not recently been on antibiotics. She takes no medications. Patient is mostly Romanian speaking. She requests her daughter acted as chainstitch hemmer in lieu of professional chainstitch hemmer. Review of Systems Narrative: She reports feeling well except for the symptoms described above beginning today. Medical Decision Making Medical Decision Making Has patient completed a Health Care Directive: No [facility] Medical History (Updated 12/03/24 @ 21:05 by Dale Patricio MD) Vitamin D deficiency (10/06/10) ?E55.9 - Vitamin D deficiency, unspecified (ICD-10) Type 2 diabetes mellitus (07/19/22) ?E11.9 - Type 2 diabetes mellitus without complications (ICD-10) Sacroiliitis, not elsewhere classified (11/18/07) ?M46.1 - Sacroiliitis, not elsewhere classified (ICD-10) Postmenopausal state (11/14/23) ?Z78.0 - Asymptomatic menopausal state (ICD-10) Hypertriglyceridemia ?E78.1 - Pure hyperglyceridemia (ICD-10) Hyperlipidemia (06/27/24) ?E78.5 - Hyperlipidemia, unspecified (ICD-10) Hemorrhoids with prolapsed tissue that cannot be manually replaced (11/04/15) ?K64.3 - Fourth degree hemorrhoids (ICD-10) Environmental allergies (11/18/12) ?Z91.09 - Other allergy status, other than to drugs and biological substances (ICD-10) Obstructive sleep apnea ?G47.33 - Obstructive sleep apnea (adult) (pediatric) (ICD-10) Surgical History History of tubal ligation ?Z98.51 - Tubal ligation status (ICD-10) History of laparoscopic cholecystectomy ?Z90.49 - Acquired absence of other specified parts of digestive tract (ICD-10) Family History Sister Breast cancer, Onset Age: 44 Father High cholesterol Social History Narrative: Homemaker. . Nonsmoker. No alcohol use. Smoking Status: Never smoker Do you use any of these nicotine containing products: None How often do you have a drink containing alcohol: monthly or less How many standard drinks containing alcohol do you have on a typical day: 1 or 2 How often do you have six or more drinks on one occasion: Never AUDIT-C Alcohol total score: 1 Non-prescribed substance use: denies use Meds Home Medications and Allergies Home Medications ?Medication ?Instructions ?Recorded ?Confirmed ?Type No Known Home Medications 10/18/23 12/03/24 History Home Medication Comments: No home meds Allergies Allergy/AdvReac Type Severity Reaction Status Date / Time No Known Drug Allergies Allergy Verified 12/03/24 19:05 Exam Narrative: Exam Narrative: She is alert and appears mildly uncomfortable holding her abdomen. Eyes normal. Oropharynx with small airway. Dry mucous membranes without other mucosal abnormality. Neck is supple without mass or adenopathy. Respirations are clear to auscultation. Cardiovascular: S1, S2, regular rate and rhythm. No murmur gallop or rub. Abdomen: Bowel sounds are present. Abdomen is soft with mild diffuse tenderness. No focal tenderness or mass. She has mild tenderness with palpation over her flank and back as well. No rashes seen. Extremities with intact pulses, good perfusion, no rash. Const: Vital Signs, click to edit/add: Vital Signs - 24 hr 12/03/24 18:14 12/03/24 19:24 12/03/24 19:27 Temperature 100.1 F H 101 F H Pulse Rate [Pulse Oximeter] 110 H 98 Respiratory Rate 18 17 Blood Pressure [Ri ght Forearm] 130/80 138/74 Pulse Oximetry 97 98 97 Oxygen Delivery Me thod Room Air Room Air Documenting provider has reviewed patient's vital signs: yes Hospitalist - H&P: Result Labs Labs: Cardiac Enzymes 12/03/24 Range/Units 18:50 Troponin I < 0.01 (0.01-0.04) ng/mL Liver Function 12/03/24 Range/Units 18:50 Total Bilirubin 0.9 (0.1-1.5) mg/dL Direct Bilirubin 0.0 (0.0-0.5) mg/dL AST 40 H (12-35) U/L ALT 38 H (4-35) U/L Alkaline Phosphatase 121 (40-150) U/L Albumin 4.3 (3.3-5.0) g/dL Imaging CT scan - abdomen: Radiologist's impression: INDICATION: Abdominal pain, fever, leukocytosis. TECHNIQUE: CT abdomen and pelvis acquired with 84 cc Isovue 370 IV contrast. COMPARISON: None. FINDINGS: Lower chest: Unremarkable. Liver: Hepatic steatosis. No suspicious masses. Gallbladder and bile ducts: Prior cholecystectomy. Pancreas: Unremarkable. No mass or inflammation. Spleen: Unremarkable. Normal in size. No masses. Adrenal glands: Unremarkable. No nodules. Kidneys: Unremarkable. No suspicious masses, stones, or hydronephrosis. GI tract: Mild proximal colonic wall thickening accentuated by nondistention.. Normal in caliber. No sign of mass or inflammation. Normal appendix. Vasculature: Abdominal aorta is normal in caliber. Mesenteric arteries are patent. Lymph nodes: No lymphadenopathy. Peritoneum/Abdominal Wall: Unremarkable. No sign of mass or infiltration. No free air or significant free fluid. Pelvis: Mildly distended bladder with circumferential wall thickening. Bones: Unremarkable for age. IMPRESSION: Mild proximal colonic wall thickening accentuated by nondistention. Low-grade colitis not excluded. Mildly distended bladder with circumferential wall thickening. Recommend correlation with urinalysis if UTI suspected. Otherwise, no acute intra-abdominal/pelvic abnormality. Hepatic steatosis. Chest x-ray: Radiologist's impression: INDICATION: Chest pain. TECHNIQUE: Chest 1 views. COMPARISON: None. FINDINGS: Cardiovascular and mediastinum: Heart size and vasculature are normal in caliber and appearance. Lungs and pleural spaces: Lungs are clear. No sign of infiltrate or mass. No sign of pleural effusion. No pneumothorax. Bones and soft tissues: No significant findings. IMPRESSION: No acute or significant findings.
[2024-12-03] MEDS: PIPERACILLIN/TAZOBACTAM 3.375 GM in 0.9 % SODIUM CHLORIDE Mini-bag 100 ML IVPB (21:56)
[2024-12-03] MEDS: SODIUM CHLORIDE 0.9 % (FLUSH) 10 ML SYRINGE 5 ML IVF (21:57)
[2024-12-03 22:34] LABS: Chloride* 102 mmol/L (96-114); Potassium* 3.9 mmol/L (3.6-5.1); Sodium* 135 mmol/L (135-149)
[2024-12-03 22:37] LABS: Anion Gap 9 mEq/L (7-15); Blood Urea Nitrogen* 6 mg/dL (7-30); Calcium* 8.8 mg/dL (8.4-10.6); Carbon Dioxide* 24 mmol/L (20-32); Creatinine* 0.6 mg/dL (0.5-1.5); Est. Creatinine Clearance* 81.82; Estimated Glomerular Filt Rate 107 ml/min; Glucose* 152 mg/dL (60-115)
[2024-12-03] MEDS: LACTATED RINGERS 1000 ML 1,000 ML 125 ML IV (22:50)
[2024-12-04] VITALS (10 sets, daily range): BP systolic 116–145; BP diastolic 57–81; PULSE 76–96; RESP 12–16; TEMP 36.8–38.2; O2SAT 95–98
[2024-12-04] MEDS: PIPERACILLIN/TAZOBACTAM 3.375 GM in 0.9 % SODIUM CHLORIDE Mini-bag 100 ML IVPB ×4 (03:25→22:26)
[2024-12-04 03:27] LABS: C.Difficile Negative (Negative); CDIFFEPI 027 PRESUMPTIVE NEGATIVE (Negative)
[2024-12-04] MEDS: ACETAMINOPHEN 325 MG TABLET 650 MG PO ×3 (03:39→16:11)
[2024-12-04] MEDS: MORPHINE 4 MG/ML INJ 2 MG IVP ×2 (03:39→08:43)
[2024-12-04 05:58] LABS: White Blood Count* 10.69 K/uL (4.50-11.00)
[2024-12-04 05:59] LABS: Hematocrit 36.7 % (33.0-51.0); Hemoglobin* 12.3 gm/dL (12.0-16.0); Immature Granulocytes Abs Auto 0.01 K/uL (0.00-0.30); Immature Granulocytes Pct Auto 0.1 %; Mean Corpuscular HGB Conc 34 gm/dL (32-36); Mean Corpuscular Hemoglobin 28 pg (26-34); Mean Corpuscular Volume 85 fL (80-100); RDW Coefficient of Variation % 12.9 % (11.5-15.5); Red Blood Count 4.34 m/uL (4.00-5.20)
[2024-12-04 06:10] LABS: Lymphocytes Absolute Auto 1.20 K/uL (0.90-2.90); Slide Review Reflex No
[2024-12-04 06:16] LABS: Chloride* 105 mmol/L (96-114)
[2024-12-04 06:17] LABS: Potassium* 3.6 mmol/L (3.6-5.1); Sodium* 136 mmol/L (135-149)
[2024-12-04 06:19] LABS: Blood Urea Nitrogen* 5 mg/dL (7-30); Creatinine* 0.5 mg/dL (0.5-1.5); Est. Creatinine Clearance* 98.19; Estimated Glomerular Filt Rate 112 ml/min
[2024-12-04 06:20] LABS: Anion Gap 8 mEq/L (7-15); Calcium* 8.3 mg/dL (8.4-10.6); Carbon Dioxide* 23 mmol/L (20-32); Glucose* 198 mg/dL (60-115)
--- NOTE | 2024-12-04 07:23 | PC.NURSE ---
The patient arrived to the floor from the ED. They have been alert and oriented throughout the night. Spiked a fever in the morning hours. Oral Tylenol was given. Pain is located across the back and over the whole abdomen. Abdomen more pronounced than the back as the morning reyes near. Stooling relieved the pain when she used the restroom. Later I gave IV morphine PRN to alleviate it. Her stool is liquid brown. Sent for C. Diff testing and came back negative.? Abdomen is tender to the touch. Lithuanian speaking. Utilizing an doper for communication. ?
--- NOTE | 2024-12-04 07:44 | PM.IMPN1 ---
Assessment and Plan Assessment and plan (1) Abdominal pain: Problem comment: CT suggestive of colitis. Patient is not having diarrhea at this point. Will do stool studies if diarrhea develops. She is moderately ill and with diffuse tenderness I am going to initiate antibiotics pending clinical course. CT also showing bladder wall thickening. UC pending Consider inpatient colonoscopy if new or worsening symptoms without resolve Recommend outpatient colonoscopy in 1 month Status: Acute (2) Colitis: Problem comment: 1 loose stool this morning, no report of blood C difficile negative Stool culture, viral culture pending Continue Zosyn. WBC downtrending. Last fever > 12 hours ago Continue IVF, clear liquid diet as tolerated Pain and nausea management as needed Status: Acute (3) Fever: Problem comment: Likely due to intra-abdominal infection Management as above Status: Acute (4) Obstructive sleep apnea: Problem comment: Clinically suspected based on her small airway, history of snoring, history of daytime sleepiness and non restorative sleep Recommend outpatient follow-up with PCP for further testing Status: Suspected (5) Type 2 diabetes mellitus: Problem comment: Patient reports diagnosis of prediabetes though hemoglobin A1c was 7.1 in June and is 8.1 today on 12/03/2024. Consider starting oral hypoglycemics when she is clinically better and eating Status: Acute (6) Hepatic steatosis: Problem comment: As noted on CT. AST 40, ALT 38, bili unremarkable Outpatient follow-up with PCP Status: Acute Plan Continue IV antibiotics, clear liquids, monitor, discharge or further work up pending clinical course Total Time Spent Total Time Spent: Today I spent 55 minutes seeing the patient, reviewing Expanse and EPIC notes/diagnostics, discussing the care plan with our care time that includes social work, PT/OT, pharmacy, RT, senior living and documenting my impressions and plan in the medical record. Subjective Date Seen: 12/04/24 Interval history: Patient is seen lying in bed, on her left side. and daughter at bedside. In-house research and development scientist is present. Through research and development scientist, patient reports feeling better than on admission however continues to have generalized, crampy abdominal pain that she rates 8/10. Comes and goes in waves. Has not been nauseous this morning. No vomiting. Had a semi loose stool at 3:00 a.m. this morning. No blood was noted. Was sent for C diff testing which is negative. Fever 101? at 7:30 p.m. last night. Denies known or suspicious exposures. No one else in her family has been ill. No recent travel. Continues on Zosyn. Leukocytosis improving. C difficile negative. Stool culture and viral culture pending. BC x2 pending. UC pending Exam Narrative: Exam Narrative: PHYSICAL EXAM General: Lying on left side, appears comfortable at this time. NAD HEENT: Normocephalic, atraumatic, sclera white, EOMI, oral mucosa moist Cardiovascular: RRR, S1S2. No pitting edema Pulmonary: CTA bilaterally without rhonchi, rales, expiratory wheezes. No dyspnea on room air Abdominal: Soft, nondistended, generalized tenderness without guarding Neurological: Alert, answering questions appropriately, cranial nerves intact, no focal findings Extremities: No gross joint deformity or swelling. AROMI. Neurovascularly intact Skin: Warm, dry. Const: Vital Signs, click to edit/add: Vital Signs - 24 hr 12/03/24 18:14 12/03/24 19:24 12/03/24 19:27 Temperature 100.1 F H 101 F H Pulse Rate [Bilate ral Radial] Pulse Rate [Left P ulse Oximeter] Pulse Rate [Pulse Oximeter] 110 H 98 Respiratory Rate 18 17 Blood Pressure [Ri ght Arm] Blood Pressure [Ri ght Forearm] 130/80 138/74 Pulse Oximetry 97 98 [facility] 12/03/24 21:05 12/03/24 21:05 12/03/24 21:06 Temperature 98.5 F 98.5 F Pulse Rate [Bilate ral Radial] Pulse Rate [Left P ulse Oximeter] 96 96 Pulse Rate [Pulse Oximeter] Respiratory Rate 18 16 18 Blood Pressure [Ri ght Arm] 127/59 L 127/59 L Blood Pressure [Ri ght Forearm] Pulse Oximetry 97 97 97 [facility] Room [facility] 12/03/24 21:25 12/03/24 23:00 12/04/24 03:30 Temperature 98.5 F 99 F Pulse Rate [Bilate ral Radial] 76 Pulse Rate [Left P ulse Oximeter] 90 Pulse Rate [Pulse Oximeter] Respiratory Rate 16 16 Blood Pressure [Ri ght Arm] 123/51 L 145/81 H Blood Pressure [Ri ght Forearm] Pulse Oximetry 98 97 Oxygen Delivery Me thod Room Air Room Air 12/04/24 03:39 Temperature 99 F Pulse Rate [Bilate ral Radial] Pulse Rate [Left P ulse Oximeter] Pulse Rate [Pulse Oximeter] Respiratory Rate Blood Pressure [Ri ght Arm] Blood Pressure [Ri ght Forearm] Pulse Oximetry Oxygen Delivery [place] thod Labs Labs: Laboratory Results - last 24 hr 12/03/24 12/03/24 12/03/24 18:50 18:52 20:06 WBC RBC Hgb Hct MCV MCH MCHC RDW Coeff of [place] Plt Count Neut % (Auto) Lymph % (Auto) [place] % (Auto) Eos % (Auto) Baso % (Auto) Neut # (Auto) Lymph # (Auto) [place] # (Auto) Eos # (Auto) Baso # (Auto) Abs Immat Gran (auto) Imm/Tot Granulo (auto) Sodium 135 Potassium 3.9 Chloride 102 Carbon Dioxide 24 Anion Gap 9 BUN 6 L Creatinine 0.6 Estimated Creat Clear 81.82 Estimated GFR 107 Glucose 152 H Hemoglobin A1c 8.1 H Lactate 1.2 Calcium 8.8 Total Bilirubin 0.9 Direct Bilirubin 0.0 AST 40 H ALT 38 H Alkaline Phosphatase 121 Troponin I < 0.01 C-Reactive Protein 1.8 H Total Protein 8.8 H Albumin 4.3 Lipase 84 Stl C. diff Tox B Gene Stl C. diff [id number]-NAP1-BI Lab Acknowledgement Test Added Test Added 12/03/24 12/04/24 12/04/24 21:20 02:25 05:51 WBC 10.69 RBC 4.34 Hgb 12.3 Hct 36.7 MCV 85 MCH 28 MCHC 34 RDW Coeff of [place] 12.9 Plt Count 253 Neut % (Auto) 83.6 H Lymph % (Auto) 10.9 L [place] % (Auto) 5.1 Eos % (Auto) 0.1 Baso % (Auto) 0.2 Neut # (Auto) 8.90 H Lymph # (Auto) 1.20 [place] # (Auto) 0.50 Eos # (Auto) 0.01 Baso # (Auto) 0.02 Abs Immat Gran (auto) 0.01 Imm/Tot Granulo (auto) 0.1 Sodium 136 Potassium 3.6 Chloride 105 Carbon Dioxide 23 Anion Gap 8 BUN 5 L Creatinine 0.5 Estimated Creat Clear 98.19 Estimated GFR 112 Glucose 198 H Hemoglobin A1c Lactate Calcium 8.3 L Total Bilirubin Direct Bilirubin AST ALT Alkaline Phosphatase Troponin I C-Reactive Protein 3.3 H Total Protein Albumin Lipase Stl C. diff Tox B Gene Negative Stl C. diff [id number] PRESUMPTIVE NEGATIVE Lab Acknowledgement Test Added
[2024-12-04] MEDS: LACTATED RINGERS 1000 ML 1,000 ML 125 ML IV ×2 (08:48→17:56)
--- NOTE | 2024-12-04 12:55 | PC.SOCIAL ---
visitor services coordinator consult: paste worker met with the pt, her daughter who is 25 and her . Pt elected to have her 25 year old daughter translate in lieu of an IPAD goat herder(in-person interpreters were not available). paste worker provided the pt and her family with information on Advanced Care Planning. Pt and her family were provided with a blank copy of a [place] H[place](in [place]) and a POA(in nigerien). The pt and her family were thankful for the assistance. No other social work needs were identified at this time.
--- NOTE | 2024-12-04 14:27 | PC.NURSE ---
Patient tolerating clear liquid diet with LR@ 125 in the Left AC PIV. Patient utilizing prn medications for pain. Her temp at 1100 was 99.4 and 650 Tylenol received. Patient independent ambulating in room. and daughter at bedside.
[2024-12-04] MEDS: SODIUM CHLORIDE 0.9 % (FLUSH) 10 ML SYRINGE 5 ML IVF (22:27)
[2024-12-04] MEDS: ONDANSETRON 2 MG/ML inj 4 MG IVP (22:44)
--- NOTE | 2024-12-04 23:41 | PC.NURSE ---
[id number]: Pt. is AOx4. Pt. family bedside & supportive. Ipad protein specialist offered & present in room. Pt. moves IND to and from BR. Reported pain; pain med given;see EMAR. Pt. reports nausea after second dose of pain med given, vomited x1. Zofran given, see EMAR. Pt. reports improvement and requests rodo and cristian marinelli. notified.
[2024-12-05] MEDS: ACETAMINOPHEN 325 MG TABLET 650 MG PO ×2 (00:41→12:05)
[2024-12-05] MEDS: PIPERACILLIN/TAZOBACTAM 3.375 GM in 0.9 % SODIUM CHLORIDE Mini-bag 100 ML IVPB ×4 (03:15→21:26)
[2024-12-05] MEDS: LACTATED RINGERS 1000 ML 1,000 ML 125 ML IV ×3 (03:16→23:12)
[2024-12-05 03:24] VITALS: BP 107/58; PULSE 67; RESP 16; TEMP 37.3; O2SAT 94
[2024-12-05 06:03] LABS: Hematocrit 34.6 % (33.0-51.0); Hemoglobin* 11.6 gm/dL (12.0-16.0); Immature Granulocytes Abs Auto 0.01 K/uL (0.00-0.30); Immature Granulocytes Pct Auto 0.1 %; Lymphocytes Absolute Auto 2.62 K/uL (0.90-2.90); Mean Corpuscular HGB Conc 34 gm/dL (32-36); Mean Corpuscular Hemoglobin 29 pg (26-34); Mean Corpuscular Volume 85 fL (80-100); RDW Coefficient of Variation % 13.2 % (11.5-15.5); Red Blood Count 4.05 m/uL (4.00-5.20); White Blood Count* 8.23 K/uL (4.50-11.00)
[2024-12-05 06:14] LABS: Slide Review Reflex No
--- NOTE | 2024-12-05 06:46 | PC.NURSE ---
The patient slept intermittently throughout the night. The pain has been tolerable during my shift. IV abx and fluids infused throughout the night. Another stool sample is needed for a PCR stool test. The patient and family are aware. Febrile upon initial assessment, PRN tylenol was given. Up ad elicia, slept over at the bedside. Call light within reach. Marylin OTTO BSN
[2024-12-05 06:50] LABS: Chloride* 106 mmol/L (96-114)
[2024-12-05 06:51] LABS: Potassium* 3.6 mmol/L (3.6-5.1); Sodium* 136 mmol/L (135-149)
[2024-12-05 06:54] LABS: Anion Gap 5 mEq/L (7-15); Blood Urea Nitrogen* 3 mg/dL (7-30); Calcium* 8.2 mg/dL (8.4-10.6); Carbon Dioxide* 25 mmol/L (20-32); Creatinine* 0.6 mg/dL (0.5-1.5); Est. Creatinine Clearance* 81.82; Estimated Glomerular Filt Rate 107 ml/min; Glucose* 132 mg/dL (60-115)
[2024-12-05 07:45] VITALS: BP 128/69; PULSE 67; PULSE 73; PULSE 76; RESP 16; TEMP 36.8; O2SAT 94
[2024-12-05] MEDS: SODIUM CHLORIDE 0.9 % (FLUSH) 10 ML SYRINGE 5 ML IVF ×2 (08:53→21:27)
[2024-12-05 11:00] VITALS: BP 141/77; PULSE 75; RESP 16; TEMP 37; O2SAT 97
--- NOTE | 2024-12-05 14:14 | P.IMPN_ITS ---
Assessment and Plan Assessment and plan (1) Abdominal pain: Problem comment: CT suggestive of colitis. Patient is not having diarrhea at this point. Will do stool studies if diarrhea develops. She is moderately ill and with diffuse tenderness I am going to initiate antibiotics pending clinical course. CT also showing bladder wall thickening. UC pending Consider inpatient colonoscopy if new or worsening symptoms without resolve - not likely needed as improving currently Recommend outpatient colonoscopy in 1 month Status: Acute (2) Colitis: Problem comment: C difficile negative Stool culture, viral culture remain pending Continue Zosyn for now given fevers. WBC downtrending. BC x2 negative, UC negative Intermittent fevers, none in past 12 hours Pain and nausea management as needed Continue IVF for now Advancing diet to soft as tolerated Status: Acute (3) Fever: Problem comment: Likely due to intra-abdominal infection Management as above Status: Acute (4) Obstructive sleep apnea: Problem comment: Clinically suspected based on her small airway, history of snoring, history of daytime sleepiness and non restorative sleep Recommend outpatient follow-up with PCP for further testing Status: Suspected (5) Type 2 diabetes mellitus: Problem comment: Patient reports diagnosis of prediabetes though hemoglobin A1c was 7.1 in June and is 8.1 today on 12/03/2024. Consider starting oral hypoglycemics when she is clinically better and eating Discussed with family and patient initiating metformin at time of discharge with outpatient follow-up at [facility] for Diabetes Education and ongoing management. Her family reports she was previously managing with diet and exercise Status: Acute (6) Hepatic steatosis: Problem comment: As noted on CT. AST 40, ALT 38, bili unremarkable Outpatient follow-up Status: Acute Plan Continue IV antibiotics, advancing diet as tolerated. Discussed with patient and family possible discharge 12/06 pending ongoing clinical improvement Total Time Spent Total Time Spent: Today I spent 45 minutes seeing the patient, reviewing Expanse and EPIC notes/diagnostics, discussing the care plan with our care time that includes social work, PT/OT, pharmacy, RT, halfway and documenting my impressions and plan in the medical record. Subjective Date Seen: 12/05/24 Interval history: Patient is seen lying reclined in bed this morning. Her and 2 daughters are at bedside. Eldest daughter interprets today. Patient reports feeling better today. Pain has improved. Tolerating clears well without increased pain, nausea, vomiting. Had 1 loose stool this morning which is dark green in color. Had a fever last night of 100.2? around 2300. None since. Daughters report you can tell she is feeling better because her mood has improved. Leukocytosis resolved. BC x2 showing no growth UC contaminated, negative Stool culture remains pending Exam Narrative: Exam Narrative: PHYSICAL EXAM General: Pleasant, NAD Cardiovascular: RRR, S1S2. No pitting edema Pulmonary: CTA bilaterally without rhonchi, rales, expiratory wheezes. No dyspnea on room air Abdominal: Soft, nondistended, no tenderness this morning, no guarding Neurological: Alert, answering questions appropriately, cranial nerves intact, no focal findings Extremities: No gross joint deformity or swelling. AROMI. Neurovascularly intact Skin: Warm, dry. Const: Vital Signs, click to edit/add: Vital Signs - 24 hr 12/04/24 14:35 12/04/24 15:00 12/04/24 15:00 Temperature 99.6 F 100.7 F H Pulse Rate [Bilate ral Radial] Pulse Rate [Left P ulse Oximeter] 87 87 Respiratory Rate 14 14 Blood Pressure [Ri ght Arm] 141/62 H Pulse Oximetry 98 Oxygen Delivery Me thod Room Air 12/04/24 16:11 12/04/24 19:00 12/04/24 23:00 Temperature 100.7 F H 99.1 F 100.2 F H Pulse Rate [Bilate ral Radial] Pulse Rate [Left P ulse Oximeter] 81 82 Respiratory Rate 14 16 Blood Pressure [Ri ght Arm] 141/62 H 123/64 Pulse Oximetry 96 95 Oxygen Delivery Me thod Room Air Room Air 12/05/24 03:24 12/05/24 07:45 12/05/24 07:45 Temperature 99.2 F 98.3 F Pulse Rate [Bilate ral Radial] 76 73 Pulse Rate [Left P ulse Oximeter] 67 67 Respiratory Rate 16 16 16 Blood Pressure [Ri ght Arm] 107/58 L 128/69 Pulse Oximetry 94 94 Oxygen Delivery Me thod Room Air 12/05/24 11:00 Temperature 98.6 F Pulse Rate [Bilate ral Radial] 75 Pulse Rate [Left P ulse Oximeter] 75 Respiratory Rate 16 Blood Pressure [Ri ght Arm] 141/77 H Pulse Oximetry 97 Oxygen Delivery Me thod Room Air Labs Labs: Laboratory Results - last 24 hr 12/05/24 05:47 WBC 8.23 RBC 4.05 Hgb 11.6 L Hct 34.6 MCV 85 MCH 29 MCHC 34 RDW Coeff of [place] 13.2 Plt Count 229 Neut % (Auto) 58.0 Lymph % (Auto) 31.8 [place] % (Auto) 8.4 Eos % (Auto) 1.3 Baso % (Auto) 0.4 Neut # (Auto) 4.77 Lymph # (Auto) 2.62 [place] # (Auto) 0.70 Eos # (Auto) 0.11 Baso # (Auto) 0.03 Abs Immat Gran (auto) 0.01 Imm/Tot Granulo (auto) 0.1 Sodium 136 Potassium 3.6 Chloride 106 Carbon Dioxide 25 Anion Gap 5 L BUN 3 L Creatinine 0.6 Estimated Creat Clear 81.82 Estimated GFR 107 Glucose 132 H Calcium 8.2 L C-Reactive Protein 4.6 H
[2024-12-05 15:00] VITALS: BP 139/73; PULSE 75; RESP 16; TEMP 36.7; O2SAT 98
--- NOTE | 2024-12-05 18:28 | PC.NURSE ---
Pt is doing well today. VSS. Afebrile entire shift. Pt denies pain. Pt has not experienced any nausea or vomiting today. Pt is tolerating a therapeutic diet. Pt reports that stools are going from loose to soft. Ambulating well independently. is at bedside. Pt is resting well at this time.
[2024-12-05 19:00] VITALS: BP 131/77; PULSE 74; RESP 16; TEMP 37; O2SAT 99
[2024-12-05 22:39] VITALS: BP 130/70; PULSE 77; RESP 16; TEMP 37; O2SAT 97
[2024-12-06 03:00] VITALS: BP 127/60; PULSE 67; RESP 16; TEMP 36.8; O2SAT 97
[2024-12-06] MEDS: PIPERACILLIN/TAZOBACTAM 3.375 GM in 0.9 % SODIUM CHLORIDE Mini-bag 100 ML IVPB ×2 (03:42→09:06)
[2024-12-06 06:15] LABS: Hematocrit 36.5 % (33.0-51.0); Hemoglobin* 12.0 gm/dL (12.0-16.0); Immature Granulocytes Abs Auto 0.01 K/uL (0.00-0.30); Immature Granulocytes Pct Auto 0.1 %; Lymphocytes Absolute Auto 2.53 K/uL (0.90-2.90); Mean Corpuscular HGB Conc 33 gm/dL (32-36); Mean Corpuscular Hemoglobin 28 pg (26-34); Mean Corpuscular Volume 85 fL (80-100); RDW Coefficient of Variation % 13.0 % (11.5-15.5); Red Blood Count 4.28 m/uL (4.00-5.20); White Blood Count* 6.70 K/uL (4.50-11.00)
[2024-12-06 06:31] LABS: Slide Review Reflex No
--- NOTE | 2024-12-06 06:31 | PC.NURSE ---
End of shift [id number]: Pt AxOx4, cooperative, and pleasant with cares. Remaining afebrile. Pt denies nausea and pain during entirety of the shift. Pt is tolerating a therapeutic diet well. Pt reports soft stool. Ambulating well independently, no safety concerns. is at bedside. Pt is resting at this time, call light within reach.
[2024-12-06 06:35] LABS: Chloride* 104 mmol/L (96-114); Sodium* 137 mmol/L (135-149)
[2024-12-06 06:36] LABS: Potassium* 3.7 mmol/L (3.6-5.1)
[2024-12-06 06:38] LABS: Blood Urea Nitrogen* 4 mg/dL (7-30); Creatinine* 0.6 mg/dL (0.5-1.5); Est. Creatinine Clearance* 81.82; Estimated Glomerular Filt Rate 107 ml/min
[2024-12-06 06:39] LABS: Anion Gap 6 mEq/L (7-15); Calcium* 8.3 mg/dL (8.4-10.6); Carbon Dioxide* 27 mmol/L (20-32); Glucose* 142 mg/dL (60-115)
[2024-12-06 07:00] VITALS: PULSE 62; PULSE 67; RESP 16
[2024-12-06 09:05] VITALS: BP 129/69; PULSE 62; RESP 16; TEMP 36.8; O2SAT 96
[2024-12-06] MEDS: SODIUM CHLORIDE 0.9 % (FLUSH) 10 ML SYRINGE 5 ML IVF (09:07)
[2024-12-06] MEDS: LACTATED RINGERS 1000 ML 1,000 ML 125 ML IV (09:40)
[2024-12-06 11:00] VITALS: BP 129/63; PULSE 69; RESP 16; O2SAT 94
--- NOTE | 2024-12-06 12:30 | PM.DS1 ---
DS: Providers Provider Time Seen by Provider: 10:10 Date Seen: 12/06/24 Date of admission: 12/05/24 10:30 Primary care physician: Not a Local Provider Admitting Clinician: Silvia Nguyễn MD Consults: 12/04/24 05:50 Consult to Camp Counselor [CONS] Routine Comment: food security as well Reason for Consult:: PT Requests Adv Dir Info Attending Physician on discharge: Sneha Barker MD Date of Discharge: 12/06/24 DS: Diagnosis Discharge Diagnosis (1) Abdominal pain: Status: Acute Problem details: CT suggestive of colitis. Patient is not having diarrhea at this point. Will do stool studies if diarrhea develops. She is moderately ill and with diffuse tenderness I am going to initiate antibiotics pending clinical course. CT also showing bladder wall thickening. UC pending Consider inpatient colonoscopy if new or worsening symptoms without resolve - not likely needed as improving currently (2) Colitis: Status: Acute Problem details: C difficile negative Stool culture, viral culture remain pending Continue Zosyn for now given fevers. WBC downtrending. BC x2 negative, UC negative Intermittent fevers, none in past 12 hours Pain and nausea management as needed Continue IVF for now Advancing diet to soft as tolerated - 12/06 pain and tenderness have resolved. No diarrhea. Afebrile > 24 hours. Able to tolerate a regular diet. Discharge home on augmentin, follow up with [facility] this week. Recommend outpatient colonoscopy in 1 month (3) Fever: Status: Resolved Problem details: Likely due to intra-abdominal infection Management as above (4) Obstructive sleep apnea: Status: Suspected Problem details: Clinically suspected based on her small airway, history of snoring, history of daytime sleepiness and non restorative sleep Recommend outpatient follow-up with PCP for further testing (5) Type 2 diabetes mellitus: Status: Acute Problem details: Patient reports diagnosis of prediabetes though hemoglobin A1c was 7.1 in June and is 8.1 today on 12/03/2024. Consider starting oral hypoglycemics when she is clinically better and eating Discussed with family and patient initiating metformin at time of discharge with outpatient follow-up at [facility] for Diabetes Education and ongoing management. Her family reports she was previously managing with diet and exercise (6) Hepatic steatosis: Status: Acute Problem details: As noted on CT. AST 40, ALT 38, bili unremarkable Outpatient follow-up DS: Summary Hospital Course Hospital Course: Per H&P: Elda Guerra is a 54 year old female with pre diabetes and obesity presents with onset this morning of generalized crampy abdominal pain as well as low back pain. She reports she was feeling well until this morning. She had some T and a piece of toast this morning but is not tolerate any more oral intake. She has not had vomiting but has nausea and a complete loss of appetite. She has developed a fever with temperature in the emergency department to 101 F. she reports having a normal bowel movement today. No previous history of abdominal problems other than prior cholecystectomy. No other surgeries. No previous history of constipation, diarrhea or blood in her stool except a remote history, 9 years ago of problems with hemorrhoids. None since then. She reports no urinary symptoms, urgency or dysuria. On November 22 she reports she ate some tacos that she thought were bad. She had abdominal pain and cramping after that but it resolved. She was fine until today when symptoms began again. No other foods that she thinks ox could have been improperly prepared or stored. She has not had any recent travel. She is not aware of any contacts with anybody else who has been ill. She has not recently been on antibiotics. She takes no medications. Patient is mostly Togolese speaking. She requests her daughter acted as site interpreter in lieu of professional site interpreter. Patient has improved with IV antibiotics. Afeb, tolerating a regular diet, pain has improved significantly. F/u with [facility] this week to schedule colonoscopy in 1 month, consider outpatient WILDER testing. I am holding off on starting metformin upon homegoing because if she developed nausea or diarrhea as a side effect, it may complicate her current clinical picture/recovery from colitis. Time Spent with Patient Time attestation: Total time spent providing and/or coordinating discharge services: Today I spent 35 minutes seeing and discharging the patient, discussing with the patient, her , and her daughter Lorna, reviewing [facility] and [facility] notes/diagnostics/labs, discussing the care plan with our care team that includes social work, PT/OT, pharmacy, RT, prison and documenting my impressions and plan in the medical record. Exam Narrative: Exam Narrative: General: No acute distress. Awake, alert, oriented x3. No pallor. No jaundice. Oropharynx: Clear. Mucous membranes moist. Cardiovascular: Regular rate and rhythm. No murmurs, gallops, or rubs. Respiratory: Clear to auscultation bilaterally. No wheezes or crackles. Abdomen: Bowel sounds present. Soft, nondistended, nontender. Extremities: No lower extremity edema. Const: Vital Signs, click to edit/add: Vital Signs - 24 hr 12/05/24 15:00 12/05/24 19:00 12/05/24 22:39 Temperature 98.1 F 98.6 F 98.6 F Pulse Rate [Bilate ral Radial] 75 Pulse Rate [Left P ulse Oximeter] 75 74 77 Respiratory Rate 16 16 16 Blood Pressure [Ri ght Arm] 139/73 131/77 130/70 Pulse Oximetry 98 99 97 Oxygen Delivery Me thod Room Air Room Air Room Air 12/06/24 03:00 12/06/24 07:00 12/06/24 09:05 Temperature 98.2 F 98.3 F Pulse Rate [Bilate ral Radial] 62 62 Pulse Rate [Left P ulse Oximeter] 67 67 Respiratory Rate 16 16 16 Blood Pressure [Ri ght Arm] 127/60 129/69 Pulse Oximetry 97 96 Oxygen Delivery Me thod Room Air Room Air 12/06/24 11:00 Temperature Pulse Rate [Bilate ral Radial] 69 Pulse Rate [Left P ulse Oximeter] Respiratory Rate 16 Blood Pressure [Ri ght Arm] 129/63 Pulse Oximetry 94 Oxygen Delivery Me thod Room Air DS: Data Data Completed and Pending Completed studies during hospitalization: 12/03/2024 EKG: Sinus tachycardia, 109 beats per minute, cannot rule out anterior infarct, age undetermined. 12/03/2024 EKG: Sinus tachycardia, 101 beats per minute, rightward axis, cannot rule out anterior infarct, age undetermined. Ordering Physician: Luzma Stanton M.D. Date of Service: 12/03/24 Procedure(s): CT abdomen pelvis w con Accession Number(s): [id number] cc: Provider,Not a Local; Luzma Stanton M.D.~ For Patients: As a result of the Century Cures Act, medical imaging exams and procedure reports are released immediately into your electronic medical record. You may view this report before your referring provider. If you have questions, please contact your health care provider. INDICATION: Abdominal pain, fever, leukocytosis. TECHNIQUE: CT abdomen and pelvis acquired with 84 cc Isovue 370 IV contrast. COMPARISON: None. FINDINGS: Lower chest: Unremarkable. Liver: Hepatic steatosis. No suspicious masses. Gallbladder and bile ducts: Prior cholecystectomy. Pancreas: Unremarkable. No mass or inflammation. Spleen: Unremarkable. Normal in size. No masses. Adrenal glands: Unremarkable. No nodules. Kidneys: Unremarkable. No suspicious masses, stones, or hydronephrosis. GI tract: Mild proximal colonic wall thickening accentuated by nondistention.. Normal in caliber. No sign of mass or inflammation. Normal appendix. Vasculature: Abdominal aorta is normal in caliber. Mesenteric arteries are patent. Lymph nodes: No lymphadenopathy. Peritoneum/Abdominal Wall: Unremarkable. No sign of mass or infiltration. No free air or significant free fluid. Pelvis: Mildly distended bladder with circumferential wall thickening. Bones: Unremarkable for age. IMPRESSION: Mild proximal colonic wall thickening accentuated by nondistention. Low-grade colitis not excluded. Mildly distended bladder with circumferential wall thickening. Recommend correlation with urinalysis if UTI suspected. Otherwise, no acute intra-abdominal/pelvic abnormality. Hepatic steatosis. Additional chronic findings as above. Please note that all CT scans at this facility use dose modulation, iterative reconstruction, and/or weight-based dosing when appropriate to reduce radiation dose to as low as reasonably achievable. Dictated by Joseph Sage MD @ 12/03/2024 7:20:12 PM (Electronically Signed) Ordering Physician: Luzma Stanton M.D. Date of Service: 12/03/24 Procedure(s): XR chest 1V Accession Number(s): [id number] cc: Provider,Not a Local; Luzma Stanton M.D.~ For Patients: As a result of the 21st Century Cures Act, medical imaging exams and procedure reports are released immediately into your electronic medical record. You may view this report before your referring provider. If you have questions, please contact your health care provider. INDICATION: Chest pain. TECHNIQUE: Chest 1 views. COMPARISON: None. FINDINGS: Cardiovascular and mediastinum: Heart size and vasculature are normal in caliber and appearance. Lungs and pleural spaces: Lungs are clear. No sign of infiltrate or mass. No sign of pleural effusion. No pneumothorax. Bones and soft tissues: No significant findings. IMPRESSION: No acute or significant findings. Dictated by Joseph Sage MD @ 12/03/2024 7:16:19 PM (Electronically Signed) Labs on day of discharge: Labs from last 24 hours 12/06/24 12/04/24 05:49 02:25 WBC 6.70 RBC 4.28 Hgb 12.0 Hct 36.5 MCV 85 MCH 28 MCHC 33 RDW Coeff of [place] 13.0 Plt Count 263 Neut % (Auto) 49.8 Lymph % (Auto) 37.8 Bucks % (Auto) 10.0 Eos % (Auto) 1.9 Baso % (Auto) 0.4 Neut # (Auto) 3.33 Lymph # (Auto) 2.53 Bucks # (Auto) 0.70 Eos # (Auto) 0.13 Baso # (Auto) 0.03 Abs Immat Gran (auto) 0.01 Imm/Tot Granulo (auto) 0.1 Sodium 137 Potassium 3.7 Chloride 104 Carbon Dioxide 27 Anion Gap 6 L BUN 4 L Creatinine 0.6 Estimated Creat Clear 81.82 Estimated GFR 107 Glucose 142 H Calcium 8.3 L C-Reactive Protein 2.8 H Stl C. cayetanensis PCR Pending Stool Rotavirus A PCR Pending Stool Adenovirus (PCR) Pending Stool Astrovirus (PCR) Pending Stool Campylobacter PCR Pending Stool Cryptosporidium PCR Pending Stl E.coli Shiga Tox PCR Pending Stool E coli O157 PCR Pending Stl Enterotoxigenic E PCR Pending Stool EPEC (PCR) Pending Stool EAEC (PCR) Pending Stl E. histolytica PCR Pending Stool Giardia Lamblia PCR Pending Stl P. shigelloides PCR Pending Stool Salmonella PCR Pending Stool Sapovirus (PCR) Pending Stl Shigella/EIEC PCR Pending St Y.enterocolitica PCR Pending Stool Vibrio (PCR) Pending Stl Vibrio cholerae PCR Pending Stl Norovirus GI/GII PCR Pending Preliminary micro results at discharge 12/04/24 02:25 Stool Culture - Preliminary Stool Viral Culture, Non-Respiratory - Preliminary 12/03/24 19:25 Blood Culture - Preliminary Blood NO GROWTH AFTER 48 HOURS 12/03/24 20:02 Blood Culture - Preliminary Blood NO GROWTH AFTER 48 HOURS Discharge Plan Discharge Disposition: Home, Self-Care Date of Admission: 12/05/24 10:30 Attending Provider on Discharge: Sneha Barker Primary Care Provider: Provider,Not a Local Condition: Improved Anticipated Discharge Date/Time: 12/06/24 12:47 Discharge Medications: New amoxicillin-pot clavulanate 500-125 mg tablet 1 tab PO BID 7 Days Qty: 14 0RF No Action No Known Home Medications Discharge Orders: Discharge Order (Routine); Ordered 12/06/24 Ordered By: Sneha Barker Additional Instructions: CONTINUE TO GRADUALLY INCREASE YOUR DIET TOLERATED, AVOIDING SPICEY, FATTY FOODS, ALCOHOL WAIT TO START METFORMIN (FOR DIABETES) UNTIL YOU FOLLOW UP AT [facility] FOR DIABETES EDUCATION AND ONGOING MANAGEMENT RECOMMEND EVALUATION FOR SLEEP APNEA, COLONOSCOPY - SEE YOUR PROVIDER AT [facility] THIS WEEK TO SET THESE UP. Activity Level: Activity as Tolerated Discharge Diet: Diabetic Follow Up Appointments: Provider,Not a Local [Primary Care Provider, Family Practice] Forms: [employer] Info Instructions Discharge Comments: FOLLOW UP AT [facility]
--- NOTE | 2024-12-06 13:43 | PC.NURSE ---
Pt is doing well today. VSS. Denies pain. Denies nausea. Tolerating therapeutic diet and ambulation well. Pt reports formed stools. Pt signed discharge information and pt belongings. Pt discharged home via at 1340.
[2024-12-08 07:00] LABS: Campylobacter PCR Detected; Enteroaggregative E coli PCR Not Detected; Enteropathogenic E coli PCR Not Detected; Enterotoxigenic E coli PCR Not Detected; Plesiomonas shig PCR Not Detected; Shiga toxin E coli PCR Not Detected
== END 2024-12-06 13:40 | disposition home or self-care (01) | DRG 248 ==
LOC: ED 20:22 → MEDSURG 20:34
PROVIDERS: Family Medicine; Admitting Provider Physician Assistant; Emergency Provider Family Medicine; Visit Provider Family Medicine
DX: A04.5 Campylobacter enteritis (principal); G47.33 Obstructive sleep apnea (adult) (pediatric); E11.9 Type 2 diabetes mellitus without complications; K76.0 Fatty (change of) liver, not elsewhere classified; R07.9 Chest pain, unspecified; R10.13 Epigastric pain; E66.9 Obesity, unspecified; Z68.31 Body mass index [BMI] 31.0-31.9, adult
CPT/HCPCS: 36415; 71045; 74177; 80048; 80076; 83036; 83605; 83690; 84484; 85025; 86140; 87040; 87045; 87046; 87252; 87427; 87493; 87507; 93005; 94761; 99284; 99285; T1013; A9270; G0378; J2270; J2405; J2543; J7030; J7050; J7120; Q9967